=== PATIENT | male | born 1945 ===

== ENCOUNTER 2019-09-15 12:06 | Emergency (ER) | payer BC, MEDICARE ==
[~2019-09-15] VITALS: Ht 185.4 cm; Wt 88.6 kg
[2019-09-15 13:57] VITALS: BP 153/95
[2019-09-15] MEDS ORDERED: HYDROcodone/acetaminophen 5mg/325mg tablet PO ONE (14:15)
[2019-09-15] MEDS ORDERED: HYDR-4383 PO (14:29)
[2019-09-15] MEDS ORDERED: ibuprofen tablet 400 MG TABLET PO ONE (14:30)
== END 2019-09-15 14:41 | disposition home or self-care (01) ==
LOC: ER 12:07
DX: S42.292A Other displaced fracture of upper end of left humerus, initial encounter for closed fracture (principal); Z90.89 Acquired absence of other organs; Z88.1 Allergy status to other antibiotic agents; Z79.899 Other long term (current) drug therapy; W01.0XXA Fall on same level from slipping, tripping and stumbling without subsequent striking against object, initial encounter; Y93.89 Activity, other specified; Y92.59 Other trade areas as the place of occurrence of the external cause; Y99.8 Other external cause status
CPT/HCPCS: 99284